=== PATIENT | male | born 1965 | race Caucasian/White ===

== ENCOUNTER 2021-04-25 12:31 | Inpatient (IN) | payer BC, OTHER ==
[2021-04-25] MEDS ORDERED: MAGNESIUM HYDROX 2400MG/30ML ORAL SUSPENSION 30 ML CUP PO PRN (13:03)
[2021-04-25] MEDS ORDERED: guaiFENesin 200 MG/10 ML 10 ML UNIT-DOSE CUPS PO PRN (13:03)
[2021-04-25] MEDS ORDERED: LOPERAMIDE HCL 2 MG CAPSULE PO PRN (13:03)
[2021-04-25] MEDS ORDERED: MAG HYDROX/AL HYDROX/SIMETH 30 ML UNIT-DOSE CUP PO PRN (13:03)
[2021-04-25] MEDS ORDERED: MAGNESIUM CITRATE 300 ML BOTTLE PO PRN (13:03)
[2021-04-25] MEDS ORDERED: P-EPHED 60MG/TRIPROLIDI 2.5MG TABLET PO PRN (13:03)
[2021-04-25 13:29] VITALS: BMI 21.6
[2021-04-25 15:25] LABS: HEMATOCRIT 38.4 % (35.4-49); HEMOGLOBIN 12.8 GM/dL (11.7-16.9); MCH 27.8 pg (25.7-33.7); MCHC 33.3 g/dl (32.0-35.9); MEAN CELL VOLUME 83.4 fl (80-96); MEAN PLT VOLUME 9.6 fl (7.5-11.1); PLATELET COUNT 137 10^3/uL (134-434); RDW 14.3 % (11.9-15.9); WHITE BLOOD COUNT 5.8 K/mm3 (4.0-10.0)
[2021-04-25 15:33] LABS: CALCIUM 8.9 mg/dL (8.5-10.1)
[2021-04-25 15:34] LABS: ALBUMIN 3.3 g/dl (3.4-5.0)
[2021-04-25 15:37] LABS: CREATININE 0.9 mg/dL (0.55-1.3)
[2021-04-25 15:38] LABS: BILIRUBIN,TOTAL 0.4 mg/dL (0.2-1)
[2021-04-25 15:39] LABS: TOT PROT 6.7 g/dl (6.4-8.2)
[2021-04-25 15:58] LABS: SYPHILIS W/ RPR CONF NON-REACTIVE (NONREACTIVE)
[2021-04-25] MEDS ORDERED: TUBERCULIN PPD 5 TU/0.1ML VIAL ID ONE (19:01)
[2021-04-25] MEDS: hydrOXYzine PAMOATE 25 MG CAPSULE (FP) PO SCH ×3 (19:10→21:33)
[2021-04-25] MEDS: PRENATAL VITAMINS W/ FOLIC ACID TABLET (FP) PO SCH (19:10)
[2021-04-25] MEDS: MELATONIN 5 MG TABLETS PO SCH (21:33)
[2021-04-25] MEDS: THIAMINE HCL 100 MG TABLET (FP) PO SCH (21:33)
[2021-04-26] MEDS: hydrOXYzine PAMOATE 25 MG CAPSULE (FP) PO SCH ×5 (06:06→21:15)
[2021-04-26] MEDS ORDERED: methaDONE HCL 10 MG TABLET PO ONE (09:21)
[2021-04-26] MEDS ORDERED: methaDONE HCL 10 MG TABLET ONE (10:00)
[2021-04-26] MEDS ORDERED: methaDONE HCL 40 MG DISPERSABLE TABLET ONE (10:00)
[2021-04-26] MEDS: PRENATAL VITAMINS W/ FOLIC ACID TABLET (FP) PO SCH (10:02)
[2021-04-26] MEDS: MELATONIN 5 MG TABLETS PO SCH (21:15)
[2021-04-26] MEDS: THIAMINE HCL 100 MG TABLET (FP) PO SCH (21:15)
[2021-04-27] MEDS ORDERED: methaDONE HCL 10 MG TABLET ONE (05:49)
[2021-04-27] MEDS ORDERED: methaDONE HCL 40 MG DISPERSABLE TABLET ONE (05:49)
[2021-04-27] MEDS ORDERED: methaDONE HCL 40 MG DISPERSABLE TABLET PO SCH (06:00)
[2021-04-27] MEDS: hydrOXYzine PAMOATE 25 MG CAPSULE (FP) PO SCH ×5 (06:53→21:10)
[2021-04-27] MEDS: PRENATAL VITAMINS W/ FOLIC ACID TABLET (FP) PO SCH (09:59)
[2021-04-27] MEDS: IBUPROFEN 400 MG TABLET (FP) PO PRN (16:33)
[2021-04-27] MEDS: THIAMINE HCL 100 MG TABLET (FP) PO SCH (21:10)
[2021-04-27] MEDS: MELATONIN 5 MG TABLETS PO SCH (21:10)
[2021-04-27] MEDS: ACETAMINOPHEN 325 MG TABLET (FP) PO PRN (21:10)
[2021-04-28] MEDS: IBUPROFEN 400 MG TABLET (FP) PO PRN (02:43)
[2021-04-28] MEDS ORDERED: methaDONE HCL 10 MG TABLET ONE (05:20)
[2021-04-28] MEDS ORDERED: methaDONE HCL 40 MG DISPERSABLE TABLET ONE (05:21)
[2021-04-28] MEDS: hydrOXYzine PAMOATE 25 MG CAPSULE (FP) PO SCH (05:53)
[2021-04-28] MEDS: LIDOCAINE 5% TOPICAL PATCH TP SCH (10:38)
[2021-04-28] MEDS: PRENATAL VITAMINS W/ FOLIC ACID TABLET (FP) PO SCH (10:38)
[2021-04-28] MEDS: METHOCARBAMOL 500 MG TABLET PO SCH ×3 (14:47→21:24)
[2021-04-28] MEDS: MELATONIN 5 MG TABLETS PO SCH (21:24)
[2021-04-28] MEDS: THIAMINE HCL 100 MG TABLET (FP) PO SCH (21:24)
[2021-04-28] MEDS: LIDOCAINE PATCH REMOVAL MC SCH (21:24)
[2021-04-29] MEDS: IBUPROFEN 400 MG TABLET (FP) PO PRN (01:55)
[2021-04-29] MEDS ORDERED: methaDONE HCL 10 MG TABLET ONE (05:22)
[2021-04-29] MEDS ORDERED: methaDONE HCL 40 MG DISPERSABLE TABLET ONE (05:23)
[2021-04-29] MEDS: LIDOCAINE 5% TOPICAL PATCH TP SCH (09:46)
[2021-04-29] MEDS: PRENATAL VITAMINS W/ FOLIC ACID TABLET (FP) PO SCH (09:46)
[2021-04-29] MEDS: METHOCARBAMOL 500 MG TABLET PO SCH ×4 (09:47→21:03)
[2021-04-29] MEDS: levETIRAcetam 500 MG TABLET (FP) PO SCH ×2 (11:08→21:03)
[2021-04-29] MEDS: THIAMINE HCL 100 MG TABLET (FP) PO SCH (21:03)
[2021-04-29] MEDS: MELATONIN 5 MG TABLETS PO SCH (21:03)
[2021-04-29] MEDS: LIDOCAINE PATCH REMOVAL MC SCH (21:04)
[2021-04-30] MEDS ORDERED: methaDONE HCL 10 MG TABLET ONE (03:13)
[2021-04-30] MEDS ORDERED: methaDONE HCL 40 MG DISPERSABLE TABLET ONE (03:13)
[2021-04-30] MEDS: PRENATAL VITAMINS W/ FOLIC ACID TABLET (FP) PO SCH (11:10)
[2021-04-30] MEDS: METHOCARBAMOL 500 MG TABLET PO SCH ×4 (11:10→21:19)
[2021-04-30] MEDS: levETIRAcetam 500 MG TABLET (FP) PO SCH ×2 (11:10→21:19)
[2021-04-30] MEDS: LIDOCAINE 5% TOPICAL PATCH TP SCH (11:11)
[2021-04-30] MEDS ORDERED: COLLOIDAL OATMEAL 1 BAR EACH TP PRN (13:47)
[2021-04-30] MEDS ORDERED: MINERAL OIL/PETROLAT/WATER TOPICAL CREAM 113 GM JAR TP PRN (13:48)
[2021-04-30] MEDS: HYDROCORTISONE 1% TOPICAL OINT 30 GM TUBE TP SCH ×2 (15:53→21:20)
[2021-04-30] MEDS ORDERED: levETIRAcetam 500 MG TABLET (FP) PO ONE (19:03)
[2021-04-30] MEDS: THIAMINE HCL 100 MG TABLET (FP) PO SCH (21:18)
[2021-04-30] MEDS: LIDOCAINE PATCH REMOVAL MC SCH (21:20)
[2021-04-30] MEDS: SUVOREXANT 10 MG TABLET PO PRN (21:20)
[2021-05-01] MEDS ORDERED: methaDONE HCL 10 MG TABLET ONE (03:55)
[2021-05-01] MEDS ORDERED: methaDONE HCL 40 MG DISPERSABLE TABLET ONE (03:56)
[2021-05-01] MEDS: HYDROCORTISONE 1% TOPICAL OINT 30 GM TUBE TP SCH ×3 (06:25→21:24)
[2021-05-01] MEDS: PRENATAL VITAMINS W/ FOLIC ACID TABLET (FP) PO SCH (09:51)
[2021-05-01] MEDS: LIDOCAINE 5% TOPICAL PATCH TP SCH (09:51)
[2021-05-01] MEDS: levETIRAcetam 500 MG TABLET (FP) PO SCH ×2 (09:51→21:23)
[2021-05-01] MEDS: METHOCARBAMOL 500 MG TABLET PO SCH ×4 (09:53→21:23)
[2021-05-01] MEDS: THIAMINE HCL 100 MG TABLET (FP) PO SCH (21:22)
[2021-05-01] MEDS: SUVOREXANT 10 MG TABLET PO PRN (21:22)
[2021-05-01] MEDS: LIDOCAINE PATCH REMOVAL MC SCH (21:23)
[2021-05-02] MEDS ORDERED: methaDONE HCL 40 MG DISPERSABLE TABLET ONE (04:20)
[2021-05-02] MEDS ORDERED: methaDONE HCL 10 MG TABLET ONE (04:20)
[2021-05-02] MEDS: HYDROCORTISONE 1% TOPICAL OINT 30 GM TUBE TP SCH ×3 (07:08→21:18)
[2021-05-02] MEDS: METHOCARBAMOL 500 MG TABLET PO SCH ×4 (10:15→21:18)
[2021-05-02] MEDS: LIDOCAINE 5% TOPICAL PATCH TP SCH (10:15)
[2021-05-02] MEDS: PRENATAL VITAMINS W/ FOLIC ACID TABLET (FP) PO SCH (10:15)
[2021-05-02] MEDS: levETIRAcetam 500 MG TABLET (FP) PO SCH ×2 (10:15→21:18)
[2021-05-02] MEDS ORDERED: ARTIFICIAL TEARS (POLYVINYL ALCOHOL) OPTH DROPS OU PRN (15:52)
[2021-05-02] MEDS: LIDOCAINE PATCH REMOVAL MC SCH (21:18)
[2021-05-02] MEDS: THIAMINE HCL 100 MG TABLET (FP) PO SCH (21:18)
[2021-05-03] MEDS ORDERED: methaDONE HCL 10 MG TABLET ONE (03:09)
[2021-05-03] MEDS ORDERED: methaDONE HCL 40 MG DISPERSABLE TABLET ONE (03:10)
[2021-05-03] MEDS: HYDROCORTISONE 1% TOPICAL OINT 30 GM TUBE TP SCH ×3 (06:09→21:32)
[2021-05-03] MEDS: METHOCARBAMOL 500 MG TABLET PO SCH ×4 (10:16→21:31)
[2021-05-03] MEDS: LIDOCAINE 5% TOPICAL PATCH TP SCH (10:16)
[2021-05-03] MEDS: PRENATAL VITAMINS W/ FOLIC ACID TABLET (FP) PO SCH (10:16)
[2021-05-03] MEDS: levETIRAcetam 500 MG TABLET (FP) PO SCH ×2 (10:16→21:31)
[2021-05-03] MEDS: hydrOXYzine PAMOATE 25 MG CAPSULE (FP) PO PRN (13:35)
[2021-05-03] MEDS: SUVOREXANT 10 MG TABLET PO PRN (21:31)
[2021-05-03] MEDS: THIAMINE HCL 100 MG TABLET (FP) PO SCH (21:32)
[2021-05-03] MEDS: LIDOCAINE PATCH REMOVAL MC SCH (21:32)
[2021-05-04] MEDS ORDERED: methaDONE HCL 40 MG DISPERSABLE TABLET ONE (04:30)
[2021-05-04] MEDS ORDERED: methaDONE HCL 10 MG TABLET ONE (04:30)
[2021-05-04] MEDS: HYDROCORTISONE 1% TOPICAL OINT 30 GM TUBE TP SCH ×3 (06:15→21:20)
[2021-05-04] MEDS: LIDOCAINE 5% TOPICAL PATCH TP SCH (10:34)
[2021-05-04] MEDS: METHOCARBAMOL 500 MG TABLET PO SCH ×4 (10:34→21:19)
[2021-05-04] MEDS: levETIRAcetam 500 MG TABLET (FP) PO SCH ×2 (10:35→21:19)
[2021-05-04] MEDS: PRENATAL VITAMINS W/ FOLIC ACID TABLET (FP) PO SCH (10:35)
[2021-05-04] MEDS: THIAMINE HCL 100 MG TABLET (FP) PO SCH (21:19)
[2021-05-04] MEDS: LIDOCAINE PATCH REMOVAL MC SCH (21:19)
[2021-05-04] MEDS: SUVOREXANT 10 MG TABLET PO PRN (21:20)
[2021-05-05] MEDS ORDERED: methaDONE HCL 10 MG TABLET ONE (03:08)
[2021-05-05] MEDS ORDERED: methaDONE HCL 40 MG DISPERSABLE TABLET ONE (03:08)
[2021-05-05] MEDS: HYDROCORTISONE 1% TOPICAL OINT 30 GM TUBE TP SCH ×3 (06:59→21:03)
[2021-05-05] MEDS: levETIRAcetam 500 MG TABLET (FP) PO SCH ×2 (10:26→21:02)
[2021-05-05] MEDS: METHOCARBAMOL 500 MG TABLET PO SCH ×4 (10:27→21:02)
[2021-05-05] MEDS: PRENATAL VITAMINS W/ FOLIC ACID TABLET (FP) PO SCH (10:27)
[2021-05-05] MEDS: LIDOCAINE 5% TOPICAL PATCH TP SCH (10:27)
[2021-05-05] MEDS: SUVOREXANT 10 MG TABLET PO PRN (21:02)
[2021-05-05] MEDS: THIAMINE HCL 100 MG TABLET (FP) PO SCH (21:02)
[2021-05-05] MEDS: LIDOCAINE PATCH REMOVAL MC SCH (21:03)
[2021-05-05] MEDS: hydrOXYzine PAMOATE 25 MG CAPSULE (FP) PO PRN (22:31)
[2021-05-05] MEDS ORDERED: ALBUTEROL SO4 0.083% IH SOL 2.5 MG/3 ML VIAL.NEB. NEB PRN (22:55)
[2021-05-05] MEDS ORDERED: ALBUTEROL SO4 HFA INHALER IH PRN (22:56)
[2021-05-05] MEDS: MONTELUKAST NA 10 MG TABLET PO SCH (23:08)
[2021-05-06] MEDS: HYDROCORTISONE 1% TOPICAL OINT 30 GM TUBE TP SCH ×3 (06:30→22:01)
[2021-05-06] MEDS ORDERED: methaDONE HCL 40 MG DISPERSABLE TABLET ONE (09:46)
[2021-05-06] MEDS ORDERED: methaDONE HCL 10 MG TABLET ONE (09:46)
[2021-05-06] MEDS: LIDOCAINE 5% TOPICAL PATCH TP SCH (10:08)
[2021-05-06] MEDS: levETIRAcetam 500 MG TABLET (FP) PO SCH ×2 (10:08→21:12)
[2021-05-06] MEDS: METHOCARBAMOL 500 MG TABLET PO SCH ×4 (10:09→21:12)
[2021-05-06] MEDS: PRENATAL VITAMINS W/ FOLIC ACID TABLET (FP) PO SCH (10:09)
[2021-05-06 20:38] LABS: URINE APPEARANCE CLEAR; URINE BILIRUBIN NEGATIVE (NEGATIVE); URINE COLOR YELLOW; URINE GLUCOSE (UA) NEGATIVE (NEGATIVE); URINE KETONE NEGATIVE (NEGATIVE); URINE LEUK ESTERASE NEGATIVE (NEGATIVE); URINE NITRITE NEGATIVE (NEGATIVE); URINE PROTEIN NEGATIVE (NEGATIVE); URINE UROBILINOGEN 0.2 mg/dL (0.2-1.0)
[2021-05-06] MEDS: MONTELUKAST NA 10 MG TABLET PO SCH (21:12)
[2021-05-06] MEDS: THIAMINE HCL 100 MG TABLET (FP) PO SCH (21:12)
[2021-05-06] MEDS: SUVOREXANT 10 MG TABLET PO PRN (21:13)
[2021-05-06] MEDS: LIDOCAINE PATCH REMOVAL MC SCH (21:13)
[2021-05-06] MEDS ORDERED: SUVOREXANT 10 MG TABLET PO PRN (22:00)
[2021-05-07] MEDS: HYDROCORTISONE 1% TOPICAL OINT 30 GM TUBE TP SCH ×3 (07:04→21:28)
[2021-05-07] MEDS ORDERED: methaDONE HCL 10 MG TABLET ONE (08:29)
[2021-05-07] MEDS ORDERED: methaDONE HCL 40 MG DISPERSABLE TABLET ONE (08:30)
[2021-05-07] MEDS: PRENATAL VITAMINS W/ FOLIC ACID TABLET (FP) PO SCH (09:56)
[2021-05-07] MEDS: levETIRAcetam 500 MG TABLET (FP) PO SCH ×2 (09:56→21:27)
[2021-05-07] MEDS: LIDOCAINE 5% TOPICAL PATCH TP SCH (09:56)
[2021-05-07] MEDS: METHOCARBAMOL 500 MG TABLET PO SCH ×4 (09:56→21:27)
[2021-05-07] MEDS ORDERED: levETIRAcetam 500 MG TABLET (FP) PO SCH (17:00)
[2021-05-07] MEDS ORDERED: levETIRAcetam 500 MG TABLET (FP) PO ONE (18:01)
[2021-05-07] MEDS: THIAMINE HCL 100 MG TABLET (FP) PO SCH (21:26)
[2021-05-07] MEDS: MONTELUKAST NA 10 MG TABLET PO SCH (21:27)
[2021-05-07] MEDS: SODIUM CHLORIDE NASAL SPRAY 44 ML BOTTLE NS PRN (21:27)
[2021-05-07] MEDS: SUVOREXANT 10 MG TABLET PO PRN (21:28)
[2021-05-07] MEDS: LIDOCAINE PATCH REMOVAL MC SCH (21:28)
[2021-05-07] MEDS: IBUPROFEN 400 MG TABLET (FP) PO PRN (23:18)
[2021-05-08] MEDS: HYDROCORTISONE 1% TOPICAL OINT 30 GM TUBE TP SCH ×4 (06:28→21:55)
[2021-05-08] MEDS ORDERED: methaDONE HCL 10 MG TABLET ONE (09:19)
[2021-05-08] MEDS ORDERED: methaDONE HCL 40 MG DISPERSABLE TABLET ONE (09:20)
[2021-05-08] MEDS: levETIRAcetam 500 MG TABLET (FP) PO SCH ×2 (10:47→21:43)
[2021-05-08] MEDS: METHOCARBAMOL 500 MG TABLET PO SCH ×4 (10:47→21:42)
[2021-05-08] MEDS: LIDOCAINE 5% TOPICAL PATCH TP SCH (10:47)
[2021-05-08] MEDS: PRENATAL VITAMINS W/ FOLIC ACID TABLET (FP) PO SCH (10:47)
[2021-05-08] MEDS: ACETAMINOPHEN 325 MG TABLET (FP) PO PRN (13:39)
[2021-05-08] MEDS: THIAMINE HCL 100 MG TABLET (FP) PO SCH (21:42)
[2021-05-08] MEDS: LIDOCAINE PATCH REMOVAL MC SCH (21:42)
[2021-05-08] MEDS: MONTELUKAST NA 10 MG TABLET PO SCH (21:42)
[2021-05-08] MEDS: SODIUM CHLORIDE NASAL SPRAY 44 ML BOTTLE NS PRN (21:44)
[2021-05-09] MEDS: HYDROCORTISONE 1% TOPICAL OINT 30 GM TUBE TP SCH ×3 (07:09→22:03)
[2021-05-09] MEDS ORDERED: methaDONE HCL 10 MG TABLET ONE (09:23)
[2021-05-09] MEDS ORDERED: methaDONE HCL 40 MG DISPERSABLE TABLET ONE (09:24)
[2021-05-09] MEDS: levETIRAcetam 500 MG TABLET (FP) PO SCH ×2 (10:11→21:38)
[2021-05-09] MEDS: LIDOCAINE 5% TOPICAL PATCH TP SCH (10:12)
[2021-05-09] MEDS: PRENATAL VITAMINS W/ FOLIC ACID TABLET (FP) PO SCH (10:14)
[2021-05-09] MEDS: METHOCARBAMOL 500 MG TABLET PO SCH ×4 (10:14→21:39)
[2021-05-09] MEDS: LIDOCAINE PATCH REMOVAL MC SCH (21:38)
[2021-05-09] MEDS: MONTELUKAST NA 10 MG TABLET PO SCH (21:39)
[2021-05-09] MEDS: THIAMINE HCL 100 MG TABLET (FP) PO SCH (21:40)
[2021-05-09] MEDS: ACETAMINOPHEN 325 MG TABLET (FP) PO PRN (23:36)
[2021-05-10] MEDS: HYDROCORTISONE 1% TOPICAL OINT 30 GM TUBE TP SCH ×3 (06:20→21:16)
[2021-05-10] MEDS ORDERED: methaDONE HCL 40 MG DISPERSABLE TABLET ONE (09:03)
[2021-05-10] MEDS ORDERED: methaDONE HCL 10 MG TABLET ONE (09:03)
[2021-05-10] MEDS: levETIRAcetam 500 MG TABLET (FP) PO SCH ×2 (09:54→21:16)
[2021-05-10] MEDS: METHOCARBAMOL 500 MG TABLET PO SCH ×4 (09:55→21:15)
[2021-05-10] MEDS: PRENATAL VITAMINS W/ FOLIC ACID TABLET (FP) PO SCH (09:55)
[2021-05-10] MEDS: LIDOCAINE 5% TOPICAL PATCH TP SCH (09:55)
[2021-05-10] MEDS: THIAMINE HCL 100 MG TABLET (FP) PO SCH (21:15)
[2021-05-10] MEDS: MONTELUKAST NA 10 MG TABLET PO SCH (21:15)
[2021-05-10] MEDS: LIDOCAINE PATCH REMOVAL MC SCH (21:16)
[2021-05-11] MEDS: HYDROCORTISONE 1% TOPICAL OINT 30 GM TUBE TP SCH ×3 (06:48→21:45)
[2021-05-11] MEDS ORDERED: methaDONE HCL 10 MG TABLET ONE (08:59)
[2021-05-11] MEDS ORDERED: methaDONE HCL 40 MG DISPERSABLE TABLET ONE (08:59)
[2021-05-11] MEDS: METHOCARBAMOL 500 MG TABLET PO SCH ×4 (09:30→21:44)
[2021-05-11] MEDS: LIDOCAINE 5% TOPICAL PATCH TP SCH (09:30)
[2021-05-11] MEDS: PRENATAL VITAMINS W/ FOLIC ACID TABLET (FP) PO SCH (09:30)
[2021-05-11] MEDS: levETIRAcetam 500 MG TABLET (FP) PO SCH ×2 (09:30→21:44)
[2021-05-11] MEDS: THIAMINE HCL 100 MG TABLET (FP) PO SCH (21:44)
[2021-05-11] MEDS: MONTELUKAST NA 10 MG TABLET PO SCH (21:44)
[2021-05-11] MEDS: LIDOCAINE PATCH REMOVAL MC SCH (21:45)
[2021-05-12] MEDS: HYDROCORTISONE 1% TOPICAL OINT 30 GM TUBE TP SCH ×3 (07:11→21:30)
[2021-05-12] MEDS ORDERED: methaDONE HCL 10 MG TABLET ONE (09:13)
[2021-05-12] MEDS ORDERED: methaDONE HCL 40 MG DISPERSABLE TABLET ONE (09:13)
[2021-05-12] MEDS: levETIRAcetam 500 MG TABLET (FP) PO SCH ×2 (10:53→21:29)
[2021-05-12] MEDS: METHOCARBAMOL 500 MG TABLET PO SCH ×4 (10:55→21:29)
[2021-05-12] MEDS: LIDOCAINE 5% TOPICAL PATCH TP SCH (10:55)
[2021-05-12] MEDS: PRENATAL VITAMINS W/ FOLIC ACID TABLET (FP) PO SCH (10:55)
[2021-05-12] MEDS: THIAMINE HCL 100 MG TABLET (FP) PO SCH (21:29)
[2021-05-12] MEDS: MONTELUKAST NA 10 MG TABLET PO SCH (21:29)
[2021-05-12] MEDS: LIDOCAINE PATCH REMOVAL MC SCH (21:30)
[2021-05-13] MEDS: HYDROCORTISONE 1% TOPICAL OINT 30 GM TUBE TP SCH ×3 (06:44→21:15)
[2021-05-13] MEDS ORDERED: methaDONE HCL 10 MG TABLET ONE (08:55)
[2021-05-13] MEDS ORDERED: methaDONE HCL 40 MG DISPERSABLE TABLET ONE (08:56)
[2021-05-13] MEDS: PRENATAL VITAMINS W/ FOLIC ACID TABLET (FP) PO SCH (10:31)
[2021-05-13] MEDS: LIDOCAINE 5% TOPICAL PATCH TP SCH (10:33)
[2021-05-13] MEDS: METHOCARBAMOL 500 MG TABLET PO SCH ×4 (10:33→21:15)
[2021-05-13] MEDS: levETIRAcetam 500 MG TABLET (FP) PO SCH ×2 (10:33→21:15)
[2021-05-13] MEDS: MONTELUKAST NA 10 MG TABLET PO SCH (21:15)
[2021-05-13] MEDS: THIAMINE HCL 100 MG TABLET (FP) PO SCH (21:15)
[2021-05-13] MEDS: LIDOCAINE PATCH REMOVAL MC SCH (21:15)
[2021-05-14] MEDS: HYDROCORTISONE 1% TOPICAL OINT 30 GM TUBE TP SCH ×3 (06:55→21:10)
[2021-05-14] MEDS: PRENATAL VITAMINS W/ FOLIC ACID TABLET (FP) PO SCH (09:28)
[2021-05-14] MEDS: METHOCARBAMOL 500 MG TABLET PO SCH ×4 (09:28→21:09)
[2021-05-14] MEDS: levETIRAcetam 500 MG TABLET (FP) PO SCH ×2 (09:29→21:08)
[2021-05-14] MEDS: LIDOCAINE 5% TOPICAL PATCH TP SCH (09:29)
[2021-05-14] MEDS ORDERED: methaDONE HCL 10 MG TABLET ONE (09:31)
[2021-05-14] MEDS ORDERED: methaDONE HCL 40 MG DISPERSABLE TABLET ONE (09:32)
[2021-05-14] MEDS: THIAMINE HCL 100 MG TABLET (FP) PO SCH (21:09)
[2021-05-14] MEDS: LIDOCAINE PATCH REMOVAL MC SCH (21:10)
[2021-05-14] MEDS: MONTELUKAST NA 10 MG TABLET PO SCH (21:27)
[2021-05-15] MEDS: HYDROCORTISONE 1% TOPICAL OINT 30 GM TUBE TP SCH ×3 (06:37→21:33)
[2021-05-15] MEDS ORDERED: ALBUTEROL SO4 0.083% IH SOL 2.5 MG/3 ML VIAL.NEB. NEB PRN (08:33)
[2021-05-15] MEDS: IBUPROFEN 400 MG TABLET (FP) PO PRN (08:49)
[2021-05-15] MEDS ORDERED: methaDONE HCL 10 MG TABLET ONE (09:15)
[2021-05-15] MEDS ORDERED: methaDONE HCL 40 MG DISPERSABLE TABLET ONE (09:16)
[2021-05-15] MEDS: levETIRAcetam 500 MG TABLET (FP) PO SCH ×2 (09:19→21:32)
[2021-05-15] MEDS: LIDOCAINE 5% TOPICAL PATCH TP SCH (09:19)
[2021-05-15] MEDS: METHOCARBAMOL 500 MG TABLET PO SCH ×4 (09:19→21:32)
[2021-05-15] MEDS: PRENATAL VITAMINS W/ FOLIC ACID TABLET (FP) PO SCH (09:19)
[2021-05-15] MEDS: MONTELUKAST NA 10 MG TABLET PO SCH (21:31)
[2021-05-15] MEDS: LIDOCAINE PATCH REMOVAL MC SCH (21:32)
[2021-05-15] MEDS: THIAMINE HCL 100 MG TABLET (FP) PO SCH (21:32)
[2021-05-16] MEDS: HYDROCORTISONE 1% TOPICAL OINT 30 GM TUBE TP SCH ×3 (06:46→21:21)
[2021-05-16] MEDS: PRENATAL VITAMINS W/ FOLIC ACID TABLET (FP) PO SCH (11:21)
[2021-05-16] MEDS: levETIRAcetam 500 MG TABLET (FP) PO SCH ×2 (11:21→21:20)
[2021-05-16] MEDS: METHOCARBAMOL 500 MG TABLET PO SCH ×4 (11:21→21:21)
[2021-05-16] MEDS ORDERED: methaDONE HCL 10 MG TABLET ONE (11:22)
[2021-05-16] MEDS ORDERED: methaDONE HCL 40 MG DISPERSABLE TABLET ONE (11:22)
[2021-05-16] MEDS: LIDOCAINE 5% TOPICAL PATCH TP SCH (11:26)
[2021-05-16] MEDS: THIAMINE HCL 100 MG TABLET (FP) PO SCH (21:20)
[2021-05-16] MEDS: MONTELUKAST NA 10 MG TABLET PO SCH (21:21)
[2021-05-16] MEDS: LIDOCAINE PATCH REMOVAL MC SCH (21:21)
[2021-05-17] MEDS: hydrOXYzine PAMOATE 25 MG CAPSULE (FP) PO PRN (02:28)
[2021-05-17] MEDS: IBUPROFEN 400 MG TABLET (FP) PO PRN (02:28)
[2021-05-17] MEDS: HYDROCORTISONE 1% TOPICAL OINT 30 GM TUBE TP SCH ×3 (06:37→21:39)
[2021-05-17] MEDS ORDERED: methaDONE HCL 10 MG TABLET ONE (08:40)
[2021-05-17] MEDS ORDERED: methaDONE HCL 40 MG DISPERSABLE TABLET ONE (08:40)
[2021-05-17] MEDS: levETIRAcetam 500 MG TABLET (FP) PO SCH ×2 (10:20→21:37)
[2021-05-17] MEDS: METHOCARBAMOL 500 MG TABLET PO SCH ×4 (10:20→21:38)
[2021-05-17] MEDS: LIDOCAINE 5% TOPICAL PATCH TP SCH (10:23)
[2021-05-17] MEDS: PRENATAL VITAMINS W/ FOLIC ACID TABLET (FP) PO SCH (10:23)
[2021-05-17] MEDS: THIAMINE HCL 100 MG TABLET (FP) PO SCH (21:38)
[2021-05-17] MEDS: MONTELUKAST NA 10 MG TABLET PO SCH (21:38)
[2021-05-17] MEDS: LIDOCAINE PATCH REMOVAL MC SCH (21:39)
[2021-05-18] MEDS: HYDROCORTISONE 1% TOPICAL OINT 30 GM TUBE TP SCH ×3 (06:32→21:40)
[2021-05-18] MEDS ORDERED: methaDONE HCL 40 MG DISPERSABLE TABLET ONE (09:02)
[2021-05-18] MEDS ORDERED: methaDONE HCL 10 MG TABLET ONE (09:02)
[2021-05-18] MEDS: levETIRAcetam 500 MG TABLET (FP) PO SCH ×2 (10:20→21:39)
[2021-05-18] MEDS: hydrOXYzine PAMOATE 25 MG CAPSULE (FP) PO PRN (10:20)
[2021-05-18] MEDS: PRENATAL VITAMINS W/ FOLIC ACID TABLET (FP) PO SCH (10:20)
[2021-05-18] MEDS: METHOCARBAMOL 500 MG TABLET PO SCH ×4 (10:20→21:40)
[2021-05-18] MEDS: LIDOCAINE 5% TOPICAL PATCH TP SCH (10:21)
[2021-05-18] MEDS: ACETAMINOPHEN 325 MG TABLET (FP) PO PRN (10:23)
[2021-05-18] MEDS: THIAMINE HCL 100 MG TABLET (FP) PO SCH (21:39)
[2021-05-18] MEDS: MONTELUKAST NA 10 MG TABLET PO SCH (21:39)
[2021-05-18] MEDS: LIDOCAINE PATCH REMOVAL MC SCH (21:40)
[2021-05-19] MEDS: HYDROCORTISONE 1% TOPICAL OINT 30 GM TUBE TP SCH (06:30)
[2021-05-19 06:54] VITALS: BP 100/55; PULSE 65; TEMP 98.4
[2021-05-19] MEDS ORDERED: methaDONE HCL 10 MG TABLET PO ONE (09:15)
[2021-05-19] MEDS ORDERED: methaDONE HCL 40 MG DISPERSABLE TABLET ONE (09:21)
[2021-05-19] MEDS ORDERED: methaDONE HCL 10 MG TABLET ONE (09:21)
[2021-05-19] MEDS: METHOCARBAMOL 500 MG TABLET PO SCH (09:23)
[2021-05-19] MEDS: levETIRAcetam 500 MG TABLET (FP) PO SCH (09:23)
[2021-05-19] MEDS: PRENATAL VITAMINS W/ FOLIC ACID TABLET (FP) PO SCH (09:23)
== END 2021-05-19 09:27 | disposition home or self-care (01) | DRG 895 ==
LOC: YASAS 12:31 → Y3W 17:34
PROVIDERS: ADMIT Allergy & Immunology; ATTEND Allergy & Immunology
PROC: HZ42ZZZ Group Counseling for Substance Abuse Treatment, Cognitive-Behavioral (ICD-10-PCS; principal; 2021-04-25)
DX: F11.20 Opioid dependence, uncomplicated (principal); F14.20 Cocaine dependence, uncomplicated; F19.282 Other psychoactive substance dependence with psychoactive substance-induced sleep disorder; F10.20 Alcohol dependence, uncomplicated; C61 Malignant neoplasm of prostate; G40.909 Epilepsy, unspecified, not intractable, without status epilepticus; J45.909 Unspecified asthma, uncomplicated; M54.31 Sciatica, right side; B18.2 Chronic viral hepatitis C; S69.92XA Unspecified injury of left wrist, hand and finger(s), initial encounter; W19.XXXA Unspecified fall, initial encounter; Z91.81 History of falling; Y93.89 Activity, other specified; Y92.238 Other place in hospital as the place of occurrence of the external cause; Z99.89 Dependence on other enabling machines and devices; Z56.0 Unemployment, unspecified; Z59.02 Unsheltered homelessness
CPT/HCPCS: 36415; 80053; 80177; 81003; 82962; 85027; 86780; 86803; 87522; 94640; C9803; U0003; U0005

== ENCOUNTER 2021-05-01 12:15 | Emergency (ER) | payer BC, OTHER ==
[2021-05-01 12:28] VITALS: BP 103/61; PULSE 57; TEMP 97.9; BMI 21.6
== END 2021-05-01 14:38 | disposition home or self-care (01) ==
LOC: JERFT 12:15
DX: S69.92XA Unspecified injury of left wrist, hand and finger(s), initial encounter (principal); G40.89 Other seizures; W22.8XXA Striking against or struck by other objects, initial encounter
CPT/HCPCS: 73130-TC-LT-FY; 99283-25